=== PATIENT | female | born 1930 | race American Indian/Alaskan Native ===

== ENCOUNTER 2019-08-16 15:09 | Inpatient (IN) | payer MEDICARE, MEDICAID, OTHER ==
[2019-08-16] MEDS ORDERED: Sodium Chloride 0.9% 10 ML Syringe FLUSH PRN ×2 (15:49→18:44)
[2019-08-16] MEDS ORDERED: Sodium Chloride 0.9% 1,000 ML IV SCH (16:00)
--- NOTE | 2019-08-16 16:56 | CT ---
CT chest Technique: Multiple axial sections of the chest were obtained. Intravenous contrast not utilized. Findings: Aorta is diffusely ectatic. Diffuse atherosclerotic calcification is seen. Coronary artery calcification is noted. Moderately large hiatal hernia is seen. Calcified granulomas are noted within the liver and spleen. Previous cholecystectomy is noted. Small mediastinal lymph nodes are seen believed to be within normal limits. No axillary adenopathy is seen. Bone window settings were reviewed which show no discrete rib abnormality. Mild kyphosis is present of the thoracic spine. Scattered endplate osteophytes are seen within the spine. No acute compression deformities are noted. Lateral reconstructed images of the sternum appear intact. Patchy increased density within the superior segment of the right lower lung is noted. Lesser parenchymal change within the posterior left upper lung is noted. Findings could represent pulmonary contusion as well as pneumonia. Lungs otherwise are clear. No pneumothorax is seen. Impression: 1. Patchy density within the right lower lung within the superior segment as well as within the posterior left upper lung. As mentioned above, findings could represent pulmonary contusion although pneumonia cannot be excluded. 2. Other findings believed to be incidental. No other acute abnormality is seen. Diagnostic code #3 Study was dictated in [place] Standard Time
--- NOTE | 2019-08-16 16:56 | CT ---
Head CT Technique: Multiple axial sections through the brain were obtained. Intravenous contrast was not utilized. Comparison: No prior intracranial imaging. Findings: Ventricles along with basal cisterns and sulci over the convexities are moderately prominent. Diffuse diminished density is noted within the periventricular and subcortical white matter compatible with small vessel ischemic demyelination change. No other abnormal parenchymal densities are seen. No evidence of intracranial hemorrhage. No midline shift or mass effect is seen. Atherosclerotic calcification is noted within the carotid siphon. No acute paranasal sinus findings are seen. Mastoid sinuses are hypoplastic. No acute calvarial abnormality is seen. Impression: 1. Senescent change as noted above. 2. Nothing acute is appreciated on noncontrast head CT exam. Diagnostic code #2 Study was dictated in [place] Standard Time
[2019-08-16] MEDS ORDERED: cefTRIAXone 2 GM in Sodium Chloride 0.9% 100 ML IV ONE (17:09)
[2019-08-16] MEDS ORDERED: Potassium Chloride 10 MEQ in Premix Bag 1 BAG IV SCH (17:15)
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
[2019-08-16] MEDS ORDERED: Pantoprazole 40 MG Vial IVPUSH ONE (17:29)
[2019-08-16] MEDS ORDERED: Potassium Chloride 100 ML ONE (17:40)
[2019-08-16] MEDS ORDERED: Levothyroxine 100 MCG Tab PO ONE (17:57)
[2019-08-16] MEDS ORDERED: Iopamidol 612 MG/ML 100 ML Bottle IVPUSH ONE (18:44)
[2019-08-16] MEDS ORDERED: Sodium Chloride 0.9% 100 ML IV SCH (18:45)
--- NOTE | 2019-08-16 19:56 | CT ---
CT abdomen and pelvis Technique: Multiple axial sections were obtained from above the dome of the diaphragm inferiorly through the pubic symphysis. Intravenous contrast was utilized. No oral contrast has been given. Comparison: No previous abdominal imaging is available. Findings: Moderately large hiatal hernia is again noted. Calcification is seen along the periphery of the right lobe of the liver which appears to be chronic. Multiple calcified granulomas are seen within the liver and spleen. No additional abnormality is appreciated within the liver or within the spleen. Adrenal glands show no nodule. Kidneys show symmetric contrast enhancement without hydronephrosis or mass. Pancreas is atrophied. Aorta shows atherosclerotic change without aneurysm. Surgical clips are noted from prior cholecystectomy. No retroperitoneal adenopathy or mesenteric abnormalities are seen. No pelvic mass or adenopathy is seen. Delayed images shows no contrast within the distal ureters or bladder suggesting dehydration. Appendix is not visualized with certainty. No free fluid or inflammatory change is seen. Bone window settings were reviewed. Scoliosis and degenerative change is noted within the spine. Spondylolisthesis is noted at L4-L5 due to degenerative apophyseal change. Impression: 1. Findings as noted above. 2. Nothing acute is appreciated on CT study of the abdomen and pelvis. Diagnostic code #2 Study was dictated in [place] Standard Time
--- NOTE | 2019-08-16 21:04 | PCM.CONS ---
H&P History of Present Illness - General Date of Service: 08/16/19 Admit Problem/Dx: Admission Diagnosis/Problem Admission Diagnosis/Problem Anemia Source of Information: Provider History Limitations: Reports: Other (presumed dementia) - History of Present Illness Initial Comments - Free Text/Narative: Pt presents to ED via EMS after being found down at home. Pt is not able to provide any history. Per ED, pt had guiac positive stool on rectal exam. Hg 6.3 on admission. No source of bleeding evident on CT scans. Left Shoulder Pain Score (Numeric/FACES): 8 - Related Data Allergies/Adverse Reactions: Allergies Allergy/AdvReac Type Severity Reaction Status Date / Time No Known Allergies Allergy Verified 05/09/16 15:59 Home Medications: Home Meds Levothyroxine [Synthroid] 100 mcg PO DAILY 08/16/19 [History] amLODIPine [Norvasc] 5 mg PO DAILY 08/16/19 [History] Past Medical History Cardiovascular History: Reports: Hypertension Gastrointestinal History: Reports: GERD Endocrine/Metabolic History: Reports: Hypothyroidism - Past Surgical History Musculoskeletal Surgical History: Reports: Knee Replacement Social & Family History - Family History Family Medical History: Unobtainable - Tobacco Use Smoking Status *Q: Current Status Unknown - Caffeine Use Caffeine Use: Reports: Coffee, Tea - Recreational Drug Use Recreational Drug Use: No H&P Review of Systems - Review of Systems: Review Of Systems: Unable To Obtain Reason Not Obtained: pt not able to give history Exam - Exam Exam: See Below - Vital Signs Vital Signs: Last Vital Signs Temp 36.8 C 08/16/19 19:05 Pulse 58 L 08/16/19 19:05 Resp 16 08/16/19 19:05 BP 105/60 08/16/19 19:05 Pulse Ox 100 08/16/19 19:05 Weight: 54.431 kg - Exam Quality Assessment: Supplemental Oxygen General: Alert Lungs: Clear to Auscultation, Normal Respiratory Effort Cardiovascular: Regular Rate, Regular Rhythm GI/Abdominal Exam: Soft, Non-Tender, No Distention, Other (no stool noted in diaper) Extremities: Normal Inspection, No Pedal Edema Peripheral Pulses: 2+: Dorsalis Pedis (L), Dorsalis Pedis (R) Skin: Warm, Dry, Intact - Patient Data Lab Results Last 24 hrs: Laboratory Results - last 24 hr 08/16/19 08/16/19 08/16/19 Range/Units 15:30 16:07 16:07 WBC 9.32 (3.98-10.04) K/mm3 RBC 2.39 L (3.98-5.22) M/mm3 Hgb 6.3 L* D (11.2-15.7) gm/dl Hct 23.1 L (34.1-44.9) % MCV 96.7 H (79.4-94.8) fl MCH 26.4 (25.6-32.2) pg MCHC 27.3 L (32.2-35.5) g/dl RDW Std Deviation 57.6 H (36.4-46.3) fL Plt Count 262 (182-369) K/mm3 MPV 8.4 L (9.4-12.3) fl Neut % (Auto) 81.8 H (34.0-71.1) % Lymph % (Auto) 12.9 L (19.3-51.7) % [place] % (Auto) 4.7 (4.7-12.5) % Eos % (Auto) 0 L (0.7-5.8) Baso % (Auto) 0.1 (0.1-1.2) % Neut # (Auto) 7.62 H (1.56-6.13) K/mm3 Lymph # (Auto) 1.20 (1.18-3.74) K/mm3 [place] # (Auto) 0.44 H (0.24-0.36) K/mm3 Eos # (Auto) 0.00 L (0.04-0.36) K/mm3 Baso # (Auto) 0.01 (0.01-0.08) K/mm3 Manual Slide Review Abnormal smear Sodium 145 (136-145) mEq/L Potassium 2.7 L (3.5-5.1) mEq/L Chloride 106 (98-107) mEq/L Carbon Dioxide 30 (21-32) mEq/L Anion Gap 11.7 (5-15) BUN 17 (7-18) mg/dL Creatinine 1.3 H (0.55-1.02) mg/dL Est Cr Clr Drug Dosing 25.70 mL/min Estimated GFR (MDRD) 39 (>60) mL/min BUN/Creatinine Ratio 13.1 L (14-18) Glucose 113 (83-115) mg/dL Lactic Acid (0.4-2.0) mmol/L Calcium 8.5 (8.5-10.1) mg/dL Magnesium 2.0 (1.8-2.4) mg/dl Total Bilirubin 0.7 (0.2-1.0) mg/dL AST 22 (15-37) U/L ALT 18 (14-59) U/L Alkaline Phosphatase 78 (46-116) U/L Troponin I 0.036 (0.00-0.056) ng/mL Total Protein 6.1 L (6.4-8.2) g/dl Albumin 2.9 L (3.4-5.0) g/dl Globulin 3.2 gm/dL Albumin/Globulin Ratio 0.9 L (1-2) TSH 3rd Generation (0.358-3.74) uIU/mL Urine Color Dark yellow (Yellow) Urine Appearance Clear (Clear) Urine pH 6.0 (5.0-8.0) Ur Specific [place] 1.025 (1.005-1.030) Urine Protein 2+ H (Negative) Urine Glucose (UA) Negative (Negative) Urine Ketones Negative (Negative) Urine Occult Blood Negative (Negative) Urine Nitrite Negative (Negative) Urine Bilirubin 1+ H (Negative) Urine Urobilinogen 0.2 (0.2-1.0) Ur Leukocyte Esterase Negative (Negative) Urine RBC 0-5 (0-5) /hpf Urine WBC 0-5 (0-5) /hpf Ur Squamous Epith Cells 5-10 H (0-5) /hpf Urine Bacteria Few (FEW) /hpf Urine Mucus Moderate H (FEW) /hpf Blood Type Gel Antibody Screen Crossmatch 08/16/19 08/16/19 08/16/19 Range/Units 16:07 17:22 17:22 WBC (3.98-10.04) K/mm3 RBC (3.98-5.22) M/mm3 Hgb (11.2-15.7) gm/dl Hct (34.1-44.9) % MCV (79.4-94.8) fl MCH (25.6-32.2) pg MCHC (32.2-35.5) g/dl RDW Std Deviation (36.4-46.3) fL Plt Count (182-369) K/mm3 MPV (9.4-12.3) fl Neut % (Auto) (34.0-71.1) % Lymph % (Auto) (19.3-51.7) % [place] % (Auto) (4.7-12.5) % Eos % (Auto) (0.7-5.8) Baso % (Auto) (0.1-1.2) % Neut # (Auto) (1.56-6.13) K/mm3 Lymph # (Auto) (1.18-3.74) K/mm3 [place] # (Auto) (0.24-0.36) K/mm3 Eos # (Auto) (0.04-0.36) K/mm3 Baso # (Auto) (0.01-0.08) K/mm3 Manual Slide Review Sodium (136-145) mEq/L Potassium (3.5-5.1) mEq/L Chloride (98-107) mEq/L Carbon Dioxide (21-32) mEq/L Anion Gap (5-15) BUN (7-18) mg/dL Creatinine (0.55-1.02) mg/dL Est Cr Clr Drug Dosing mL/min Estimated GFR (MDRD) (>60) mL/min BUN/Creatinine Ratio (14-18) Glucose (83-115) mg/dL Lactic Acid 0.8 (0.4-2.0) mmol/L Calcium (8.5-10.1) mg/dL Magnesium (1.8-2.4) mg/dl Total Bilirubin (0.2-1.0) mg/dL AST (15-37) U/L ALT (14-59) U/L Alkaline Phosphatase (46-116) U/L Troponin I (0.00-0.056) ng/mL Total Protein (6.4-8.2) g/dl Albumin (3.4-5.0) g/dl Globulin gm/dL Albumin/Globulin Ratio (1-2) TSH 3rd Generation 72.417 H (0.358-3.74) uIU/mL Urine Color (Yellow) Urine Appearance (Clear) Urine pH (5.0-8.0) Ur Specific [place] (1.005-1.030) Urine Protein (Negative) Urine Glucose (UA) (Negative) Urine Ketones (Negative) Urine Occult Blood (Negative) Urine Nitrite (Negative) Urine Bilirubin (Negative) Urine Urobilinogen (0.2-1.0) Ur Leukocyte Esterase (Negative) Urine RBC (0-5) /hpf Urine WBC (0-5) /hpf Ur Squamous Epith Cells (0-5) /hpf Urine Bacteria (FEW) /hpf Urine Mucus (FEW) /hpf Blood Type O POSITIVE Gel Antibody Screen Negative Crossmatch See Detail Result Diagrams: 08/16/19 16:07 08/16/19 16:07 Sepsis Event Note - Evaluation Sepsis Screening Result: No Definite Risk - Focused Exam Vital Signs: Vital Signs Temp Temp Pulse Resp BP Pulse Ox 08/16/19 19:05 36.8 C 58 L 16 105/60 100 08/16/19 18:53 36.8 C 54 L 15 96/54 L 08/16/19 15:44 86 L 08/16/19 15:35 36.4 C 72 101/47 L 93 L Date Exam was Performed: 08/16/19 Time Exam was Performed: 20:58 Consult PN Assessment/Plan Procedures: Procedures COMPLETE CBC W/AUTO DIFF WBC (05/09/16) EMERGENCY DEPT VISIT (05/09/16) ROUTINE VENIPUNCTURE (05/09/16) Problem List Initiated/Reviewed/Updated: Yes My Orders Last 24 Hours: 89 y/o lady with anemia of unknown source. Guaiac positive stool - transfuse per primary and recheck hemoglobin - recommend protonix BID or protonix gtt. Can re-evaluate if she has a normal stool - hg every 4-6 hours - will follow up for lab results after transfusion - remaining medical therapy per primary Rubi Haas MD General surgery
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
[2019-08-16] MEDS ORDERED: Ondansetron 4 MG/2 ML SDV IV PRN (21:29)
[2019-08-16] MEDS: Potassium Chloride 10 MEQ in Premix Bag 1 BAG IV SCH ×2 (22:15→23:20)
[2019-08-17] MEDS: Potassium Chloride 10 MEQ in Premix Bag 1 BAG IV SCH ×4 (00:44→11:24)
[2019-08-17] MEDS: Pantoprazole 40 MG Vial IVPUSH SCH ×2 (06:29→17:37)
[2019-08-17] MEDS: Levothyroxine 100 MCG Tab PO SCH (06:29)
--- NOTE | 2019-08-17 07:31 | CR ---
Left shoulder: Three views of the left shoulder were obtained. Joint space narrowing is noted within the acromioclavicular joint. Glenohumeral joint is within normal limits. No acute fracture or other bony abnormality is seen. Impression: 1. Osteopenia and slight degenerative change. 2. Nothing acute is appreciated on three-view left shoulder study. Diagnostic code #2 Study was dictated in [place] Standard Time
--- NOTE | 2019-08-17 07:31 | CR ---
Pelvis and left hip: AP view of the pelvis was obtained and AP and frog-leg lateral views of the left hip. Bony structures are osteopenic. Surgical clips are seen within the left groin. Degenerative change is partially visualized within the lumbar spine. No acute fracture, dislocation or other bony abnormality is seen. Vascular calcification is present. Impression: 1. Findings as noted above. 2. Nothing acute is appreciated on AP pelvis or two-view left hip exam. Diagnostic code #2 Study was dictated in [place] Standard Time
[2019-08-17] MEDS ORDERED: Azithromycin 250 MG Tab PO ONE (09:00)
[2019-08-17] MEDS: Potassium Chloride 20 MEQ Tab.ER PO SCH ×2 (10:15→22:11)
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
[2019-08-17] MEDS: cefTRIAXone 1 GM in Sodium Chloride 0.9% 100 ML IV SCH (17:35)
[2019-08-18] MEDS: Pantoprazole 40 MG Vial IVPUSH SCH ×2 (05:14→17:00)
[2019-08-18] MEDS: Levothyroxine 100 MCG Tab PO SCH (05:14)
[2019-08-18] MEDS ORDERED: Potassium Chloride 20 MEQ Tab.ER PO ONE (08:12)
[2019-08-18] MEDS: Azithromycin 250 MG Tab PO SCH (08:18)
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
[2019-08-18] MEDS: cefTRIAXone 1 GM in Sodium Chloride 0.9% 100 ML IV SCH (16:20)
[2019-08-19] MEDS: Levothyroxine 100 MCG Tab PO SCH (05:24)
[2019-08-19] MEDS: Pantoprazole 40 MG Vial IVPUSH SCH ×2 (05:24→17:52)
[2019-08-19] MEDS: Azithromycin 250 MG Tab PO SCH (09:13)
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
[2019-08-19] MEDS: Cefdinir 300 MG Cap PO SCH (20:51)
[2019-08-20] MEDS: Pantoprazole 40 MG Vial IVPUSH SCH (05:22)
[2019-08-20] MEDS: Levothyroxine 100 MCG Tab PO SCH (05:23)
[2019-08-20] MEDS: Cefdinir 300 MG Cap PO SCH ×2 (09:25→21:27)
[2019-08-20] MEDS: Acetaminophen 325 MG Tab PO PRN (09:25)
[2019-08-20] MEDS: Azithromycin 250 MG Tab PO SCH (09:25)
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
[2019-08-20] MEDS ORDERED: Magnesium Hydroxide 400 MG/5 ML Susp 30 ML Cup PO ONE (17:00)
[2019-08-20] MEDS: Pantoprazole 40 MG Tab.CR PO SCH (21:27)
[2019-08-21] MEDS: Levothyroxine 100 MCG Tab PO SCH (05:43)
[2019-08-21] MEDS: Azithromycin 250 MG Tab PO SCH (09:25)
[2019-08-21] MEDS: Pantoprazole 40 MG Tab.CR PO SCH ×2 (09:25→20:31)
[2019-08-21] MEDS: Acetaminophen 325 MG Tab PO PRN (09:25)
[2019-08-21] MEDS: Lactulose Soln 10 GM/15 ML 30 ML UD Cup PO SCH ×2 (12:14→17:00)
[2019-08-21] MEDS ORDERED: Bisacodyl 10 MG Supp RECTAL ONE (17:35)
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
[2019-08-22] MEDS: Lactulose Soln 10 GM/15 ML 30 ML UD Cup PO SCH (00:29)
[2019-08-22] MEDS: Levothyroxine 100 MCG Tab PO SCH (05:34)
[2019-08-22] MEDS: Acetaminophen 325 MG Tab PO PRN (08:51)
[2019-08-22] MEDS: Pantoprazole 40 MG Tab.CR PO SCH (08:53)
[2019-08-22 10:32] VITALS: BP 109/93; PULSE 66
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
== END 2019-08-22 10:40 | disposition home or self-care (01) | DRG 811 ==
LOC: JD.ED 15:09 → JD.MS 18:46 → EEVIPCON 18:46
PROVIDERS: ADMIT Family Medicine; ATTEND Family Medicine
PROC: 30233N1 Transfusion of Nonautologous Red Blood Cells into Peripheral Vein, Percutaneous Approach (ICD-10-PCS; principal; 2019-08-16)
DX: K92.1 Melena (principal); E87.6 Hypokalemia; D64.89 Other specified anemias; D64.9 Anemia, unspecified; S27.322A Contusion of lung, bilateral, initial encounter; S20.212A Contusion of left front wall of thorax, initial encounter; S40.012A Contusion of left shoulder, initial encounter; S70.02XA Contusion of left hip, initial encounter; W19.XXXA Unspecified fall, initial encounter; I10 Essential (primary) hypertension; J69.0 Pneumonitis due to inhalation of food and vomit; K92.2 Gastrointestinal hemorrhage, unspecified; E44.0 Moderate protein-calorie malnutrition; Z96.659 Presence of unspecified artificial knee joint; I12.9 Hypertensive chronic kidney disease with stage 1 through stage 4 chronic kidney disease, or unspecified chronic kidney disease; E03.9 Hypothyroidism, unspecified; K44.9 Diaphragmatic hernia without obstruction or gangrene; N18.9 Chronic kidney disease, unspecified; K21.9 Gastro-esophageal reflux disease without esophagitis; Z79.890 Hormone replacement therapy; Z79.899 Other long term (current) drug therapy; Z68.21 Body mass index [BMI] 21.0-21.9, adult; Z91.81 History of falling
CPT/HCPCS: 36415; 70450; 71250; 73030; 73502; 74177; 80053; 81001; 83605; 83735; 84443; 84484; 85025; 86850; 86900; 86901; 86922; 87040 ×2; 93005; 96361; 96365; 96368; 96375; 99285; A9270; C9113; J0696; J3480; J7030; J7050; 36430; 82272; 85014; 85018; 87338; 93010; 94760; 96125-GN; 97110-GO; 97110-GP; 97162-GP; 97166-GO; 97530-GO; 97530-GP; 97535-GO; 99222; 99231; 99232; 99239; 99284; P9016; Q9967